=== PATIENT | female | born 1950 | race Caucasian/White ===

== ENCOUNTER → 2019-10-05 06:49 | Outpatient (CLI) | payer MEDICARE, MEDICAID, SELFPAY ==
--- NOTE | 2019-10-05 06:52 | CA_ITS ---
APPROVED REPORT Exam: Pharmacologic Technologist: Astrid Rangel, Ht: 5 ft 1 in Wt: 169 lbs BSA: 1.76 m2 HR: 80 bpm BP: 190/77 mmHg Rhythm: SINUS RHYTHM Medical History Medical History: HTN, Hyperlipidemia Medications: Omeprazole,,,,, Asa,,,,, Diazepam,,,,, Atorvastatin,,,,, Albuterol,,,,, Vit D3,,,,, BisOPROLOL,,,,, Ezetimbe,,,,, Mirtazapine,,,,, PhenXTOIN,,,,, Allergies: No known drug allergies Cardiac Risk Factors: HTN, Hyperlipidemia, FHX of CAD Stress Test Details Test: LEXISCAN HR Resting HR: 80 bpm Max Heart Rate (APMHR): 149 bpm Max HR Achieved: 101 bpm Target HR (85% APMHR): 126 bpm % of APMHR: 67 Recovery HR: 96 bpm BP Resting BP: 190.0/77.0 mmHg Max BP: 190.0/77.0 mmHg Recovery BP: 142.0/67.0 mmHg ECG Resting ECG: SINUS RHYTHM Clinical Exercise duration: 04:04 min Highest Stage Achieved: Stress ECG Conclusion LEXISCAN PORTION COMPLETED. NO SYMPTOMS DURING PEAK INFUSION. NO CP,SOA OR N/V. OCCASIONAL PVC. LESS THAN 1.5MM ST DEPRESSION. IMAGES TO FOLLOW Electronically signed by : Cesar Murillo, 10/06/2019 11:59:49
--- NOTE | 2019-10-05 06:52 | NM_ITS ---
APPROVED REPORT Exam: Nuclear Stress Test Indication: HTN, HYPERLIPIDEMIA, FORMER TOB USE, FM HX., C.P., SOB Patient Location: Outpatient Stress Tech: Stephanie Gonzalesnkson IN Tech:Tawanna Neely, ARRT, RT (R)(N) Ht: 5 ft 1 in Wt: 169 lbs Bra Size: 36C HR: 80 bpm BP: 190/77 mmHg BSA: 1.76 m2 BMI: 31.9 History: HTN, HYPERLIPIDEMIA, FORMER TOB USE, FM HX., C.P., SOB Procedure: Patient received a 0.4 mg of intravenous Lexiscan, resting heart rate 80 bpm, resting blood pressure 190/77 mmHg, with Lexiscan maximum heart rate achived was 99 bpm which is Less than 85 % of the maximum predicted heart rate and blood pressure was 163/67 mmHg. With Lexiscan, patient denied any complaint of chest pain. Electrocardiogram Resting electrocardiogram showed sinus rhythm, with Lexiscan there is less than 1.[address] segment depression noted from the baseline EKG. The EKG portion of the Lexiscan Myoview is nondiagnostic. Cardiac Stress and Resting SPECT Images: Cardiac Stress and Resting SPECT images were obtained using technetium 99m Myoview 31.6 mCi stress and 10.93 mCi at rest. Gated SPECT with analysis of segmental wall motion and calculation of the ejection fraction also done. Cardiac stress and resting SPECT images show a mild fixed defect in the anterior wall with normal contractility gated SPECT is likely secondary to soft tissue attenuation, no reversible ischemia seen, computer derived ejection fraction is over 65% with no regional wall motion abnormality, right ventricle is normal size and contractility. Conclusion: 1. The EKG portion of the Lexiscan Myoview is nondiagnostic. 2. No scintigraphic evidence of reversible ischemia seen, computer derived ejection fraction is over 65% with no regional wall motion abnormality, right ventricle is normal size and contractility. 3. Likely normal Lexiscan Myoview study. Electronically signed by : Cesar Murillo, 10/06/2019 12:02:15
--- NOTE | 2019-10-05 06:52 | CA_ITS ---
APPROVED REPORT EXAM: Comprehensive 2D, Doppler, and color-flow Echocardiogram Machine Stacker: Charito Vázquez CRT Ht: 5 ft 2 in Wt: 168lbs BSA: 1.78 BP: 140/74 mmHg Indications: Chest Pain, Shortness of Breath, GERD 2D Dimensions LVOT 1.79 cm (M/F) 1.5-2.5 M-Mode Dimensions RVDd 1.79 cm (0.9-2.6) LVDd 4.31 cm (3.5-5.7) LVDs 2.89 cm (3.5-5.7) IVSd 1.21 cm (0.6-1.1) PWd 0.98 cm (0.6-1.1) EF (Teich) 61.80% FS 32.90% EDV (Teich) 83.50 mL ESV (Teich) 31.90 mL LV Diastology E/A Ratio 1.74 Mitral Valve MV A Velocity 63.00 (40-130 cm/s) Left Ventricle Left atrium is mildly enlarged, left ventricle is normal size, left ventricle wall thickness is upper limit of the normal, there is preserved left ventricular systolic function, visually estimated ejection fraction 55% with no regional wall motion abnormality. Diastolic parameters are within normal range. Right Ventricle Right atrium and right ventricular mildly enlarged with normal contractility. Aortic Valve Aortic valve is minimally thickened and fibrosed, leaflet chordae display mobility, there is no aortic stenosis, there is mild to moderate aortic insufficiency. Mitral Valve Mitral valve leaflets are minimally thickened, there is no mitral stenosis, there is moderate mitral regurgitation. Tricuspid Valve Tricuspid valve is grossly normal, there is mild tricuspid regurgitation. Calculated right ventricular systolic pressure is 48 mmHg. Pulmonic Valve Pulmonic valve is poorly visualized. Great Vessels Aortic root is normal size. Pericardium No significant pericardial effusion noted. Conclusion 1. Mildly enlarged left atrium, normal left ventricular size, visually estimated ejection fraction of 55% with no regional wall motion abnormality, diastolic parameters are within normal range. 2. Thickened and calcified aortic valve without aortic stenosis, there is mild to moderate aortic insufficiency. 3. Moderate mitral and mild tricuspid regurgitation, calculated right ventricular systolic pressure is 48 mmHg. 4. No significant pericardial effusion noted. Electronically signed by : Cesar Murillo, 10/06/2019 14:25:25
--- NOTE | 2019-10-05 07:19 | HMH.ITSHM ---
Current Home Medications as stated by this patient Nevin Sandoval or fuels sales representative. []PHENXTOIN DIAZEPAM EZETIMIBE VITAMIN D3 OMEPRAZOLE BISOPROLOL ATORVASTATIN MIRTAZAPINE ASA ALBUTEROL
== END ==
PROVIDERS: PCP Family Medicine; Visit Provider Nurse Practitioner Family
DX: E78.2 Mixed hyperlipidemia (principal); I11.9 Hypertensive heart disease without heart failure; I20.9 Angina pectoris, unspecified; R06.00 Dyspnea, unspecified
CPT/HCPCS: 78452; 93017; 93306; A9502; J2785

== ENCOUNTER → 2020-09-10 07:22 | Outpatient (CLI) | payer MEDICARE, MEDICAID, SELFPAY ==
[2020-09-10 14:43] LABS: Basophils % 0.5 % (0.1-2.0); Eosinophils # 1.5 K/mm3 (0.0-0.4); Eosinophils % 17.4 % (0.1-12.0); Hematocrit 34.2 % (37.0-47.0); Hemoglobin 10.5 g/dL (12.2-16.2); Lymphocytes # 3.9 K/mm3 (0.7-4.5); Lymphocytes % 45.5 % (10-50); Mean Corpuscular HGB Conc 30.7 g/dL (31.8-35.4); Mean Corpuscular Hemoglobin 24.7 pg (27.0-31.2); Mean Corpuscular Volume 80.5 fl (81-99); Mean Platelet Volume 10.1 fl (7.4-10.4); Monocytes # 0.4 K/mm3 (0.1-1.0); Neutrophils # 2.7 K/mm3 (1.8-7.8); Neutrophils % 31.6 % (37.0-80.0); Platelet Count 264 K/mm3 (142-424); Red Blood Count 4.25 M/mm3 (4.20-5.40); Red Cell Distribution Width 16.1 % (11.5-17.5); White Blood Count 8.6 K/mm3 (4.8-10.8)
[2020-09-10 14:45] LABS: Chloride 107 mmol/L (98-107); Potassium 4.6 mmoL/L (3.5-5.1); Sodium 139 mmol/L (136-145)
[2020-09-10 14:47] LABS: Alanine Aminotransferase 15 U/L (12-78); Alkaline Phosphatase 121 U/L (38-126); Anion Gap 10.6 mEq/L (5-15); Aspartate Amino Transferase 27 U/L (14-36); Bilirubin,Total 0.3 mg/dl (0.2-1.3); Blood Urea Nitrogen 15 mg/dl (7-17); Carbon Dioxide 26 mmol/L (22.0-30.0); Estimated Glomerular Filt Rate 82 ml/min (>60); GFR (African American) 100 ML/MIN (>60)
[2020-09-10 14:48] LABS: Albumin Level 3.5 g/dl (3.5-5.0); Albumin/Globulin Ratio 1.1 (1.1-1.8); Calcium 8.8 mg/dl (8.4-10.2); Chol/HDL Ratio 2.4 (1-3.5); Cholesterol 143 mg/dl (140-200); Globulin 3.1 g/dL (1.3-3.2); Glucose 102 mg/dl (74-100); HDL Cholesterol 60 mg/dl (40-60); Total Protein,Serum 6.6 g/dl (6.3-8.2); Triglycerides 117 mg/dl (30-150); VLDL Cholesterol 23 mg/dL (0-40)
[2020-09-10 15:46] LABS: Phenytoin (Dilantin) 11.9 ug/ml (10-20)
== END ==
PROVIDERS: Visit Provider Nurse Practitioner Family
DX: G40.909 Epilepsy, unspecified, not intractable, without status epilepticus (principal); I27.20 Pulmonary hypertension, unspecified; E78.5 Hyperlipidemia, unspecified; Z51.81 Encounter for therapeutic drug level monitoring
CPT/HCPCS: 36415; 80053; 80061; 80185; 85025

== ENCOUNTER → 2020-12-18 12:05 | Outpatient (CLI) | payer MEDICARE, MEDICAID, SELFPAY ==
[2020-12-18 12:28] LABS: Basophils # 0.2 K/mm3 (0-0.2); Eosinophils # 1.3 K/mm3 (0.0-0.4); Eosinophils % 14.4 % (0.1-12.0); Hematocrit 34.1 % (37.0-47.0); Hemoglobin 10.3 g/dL (12.2-16.2); Mean Corpuscular HGB Conc 30.2 g/dL (31.8-35.4); Mean Corpuscular Hemoglobin 23.9 pg (27.0-31.2); Mean Corpuscular Volume 79.2 fl (81-99); Mean Platelet Volume 16.4 fl (7.4-10.4); Monocytes # 0.5 K/mm3 (0.1-1.0); Monocytes % 5.8 % (1.7-9.3); Neutrophils # 4.1 K/mm3 (1.8-7.8); Neutrophils % 44.9 % (37.0-80.0); Platelet Count 253 K/mm3 (142-424); Red Blood Count 4.31 M/mm3 (4.20-5.40); Red Cell Distribution Width 20.1 % (11.5-17.5); White Blood Count 9.1 K/mm3 (4.8-10.8)
[2020-12-18 13:30] LABS: Alanine Aminotransferase 18 U/L (12-78); Albumin Level 3.8 g/dl (3.5-5.0); Albumin/Globulin Ratio 1.2 (1.1-1.8); Alkaline Phosphatase 137 U/L (38-126); Anion Gap 13.8 mEq/L (5-15); Aspartate Amino Transferase 32 U/L (14-36); Bilirubin,Total 0.4 mg/dl (0.2-1.3); Blood Urea Nitrogen 15 mg/dl (7-17); Calcium 8.5 mg/dl (8.4-10.2); Carbon Dioxide 26 mmol/L (22.0-30.0); Chloride 104 mmol/L (98-107); Chol/HDL Ratio 2.1 (1-3.5); Cholesterol 144 mg/dl (140-200); Estimated Glomerular Filt Rate 71 ml/min (>60); GFR (African American) 85 ML/MIN (>60); Globulin 3.3 g/dL (1.3-3.2); Glucose 132 mg/dl (74-100); HDL Cholesterol 68 mg/dl (40-60); Phenytoin (Dilantin) 12.3 ug/ml (10-20); Potassium 4.8 mmoL/L (3.5-5.1); Sodium 139 mmol/L (136-145); Total Protein,Serum 7.1 g/dl (6.3-8.2); Triglycerides 83 mg/dl (30-150); VLDL Cholesterol 17 mg/dL (0-40)
[2020-12-18 13:38] LABS: Direct LDL Cholesterol 55.91 mg/dL (100-129)
[2020-12-18 20:48] LABS: Hemoglobin A1C 6.2 % (4.0-6.0)
== END ==
PROVIDERS: Visit Provider Nurse Practitioner Family
DX: I20.8 Other forms of angina pectoris (principal); I27.20 Pulmonary hypertension, unspecified; I11.9 Hypertensive heart disease without heart failure; Z79.899 Other long term (current) drug therapy; Z51.81 Encounter for therapeutic drug level monitoring
CPT/HCPCS: 36415; 80053; 80061; 80185; 83036; 85025

== ENCOUNTER → 2021-04-23 07:04 | Outpatient (CLI) | payer MEDICARE, MEDICAID, SELFPAY ==
[2021-04-23 14:34] LABS: Basophils # 0.1 K/mm3 (0-0.2); Basophils % 0.8 % (0.1-2.0); Eosinophils % 15.1 % (0.1-12.0); Hematocrit 29.1 % (37.0-47.0); Hemoglobin 8.9 g/dL (12.2-16.2); Lymphocytes # 2.7 K/mm3 (0.7-4.5); Lymphocytes % 40.8 % (10-50); Mean Corpuscular HGB Conc 30.7 g/dL (31.8-35.4); Mean Corpuscular Volume 74.8 fl (81-99); Mean Platelet Volume 9.6 fl (7.4-10.4); Monocytes # 0.4 K/mm3 (0.1-1.0); Monocytes % 6.2 % (1.7-9.3); Neutrophils # 2.5 K/mm3 (1.8-7.8); Neutrophils % 37.1 % (37.0-80.0); Platelet Count 261 K/mm3 (142-424); White Blood Count 6.7 K/mm3 (4.8-10.8)
[2021-04-23 14:47] LABS: Alanine Aminotransferase 13 U/L (12-78); Albumin Level 2.9 g/dl (3.5-5.0); Albumin/Globulin Ratio 0.9 (1.1-1.8); Alkaline Phosphatase 107 U/L (38-126); Anion Gap 6.3 mEq/L (5-15); Aspartate Amino Transferase 26 U/L (14-36); Bilirubin,Total < 0.1 mg/dl (0.2-1.3); Blood Urea Nitrogen 14 mg/dl (7-17); Calcium 7.9 mg/dl (8.4-10.2); Carbon Dioxide 26 mmol/L (22.0-30.0); Chloride 98 mmol/L (98-107); Chol/HDL Ratio 2.2 (1-3.5); Cholesterol 119 mg/dl (140-200); Estimated Glomerular Filt Rate 121 ml/min (>60); GFR (African American) 147 ML/MIN (>60); Globulin 3.1 g/dL (1.3-3.2); Glucose 99 mg/dl (74-100); HDL Cholesterol 53 mg/dl (40-60); Phenytoin (Dilantin) 14.7 ug/ml (10-20); Potassium 4.3 mmoL/L (3.5-5.1); Sodium 126 mmol/L (136-145); Triglycerides 95 mg/dl (30-150); VLDL Cholesterol 19 mg/dL (0-40)
[2021-04-23 14:55] LABS: Direct LDL Cholesterol 44.99 mg/dL (100-129)
== END ==
PROVIDERS: Visit Provider Nurse Practitioner Family
DX: I10 Essential (primary) hypertension (principal); E78.5 Hyperlipidemia, unspecified
CPT/HCPCS: 36415; 80053; 80061; 80185; 85025

== ENCOUNTER → 2021-04-29 07:11 | Outpatient (CLI) | payer MEDICARE, MEDICAID, SELFPAY ==
[2021-04-29 13:56] LABS: Anion Gap 8.5 mEq/L (5-15); Blood Urea Nitrogen 13 mg/dl (7-17); Calcium 8.6 mg/dl (8.4-10.2); Carbon Dioxide 28 mmol/L (22.0-30.0); Chloride 105 mmol/L (98-107); Estimated Glomerular Filt Rate 98 ml/min (>60); GFR (African American) 119 ML/MIN (>60); Glucose 111 mg/dl (74-100); Potassium 4.5 mmoL/L (3.5-5.1); Sodium 137 mmol/L (136-145)
[2021-04-29 14:00] LABS: Basophils # 0.1 K/mm3 (0-0.2); Basophils % 0.6 % (0.1-2.0); Eosinophils % 12.8 % (0.1-12.0); Hematocrit 31.5 % (37.0-47.0); Hemoglobin 9.3 g/dL (12.2-16.2); Lymphocytes % 37.1 % (10-50); Mean Corpuscular HGB Conc 29.6 g/dL (31.8-35.4); Mean Corpuscular Hemoglobin 22.6 pg (27.0-31.2); Mean Corpuscular Volume 76.4 fl (81-99); Monocytes # 0.3 K/mm3 (0.1-1.0); Monocytes % 4.2 % (1.7-9.3); Neutrophils # 3.6 K/mm3 (1.8-7.8); Neutrophils % 45.3 % (37.0-80.0); Platelet Count 291 K/mm3 (142-424); Red Blood Count 4.13 M/mm3 (4.20-5.40)
[2021-04-29 14:45] LABS: Vitamin B12 406 pg/mL (239-931)
[2021-04-29 15:16] LABS: Total Iron Binding Capacity 373 ug/dL (265-497)
[2021-04-29 15:20] LABS: Iron 25 ug/dL (37-170)
== END ==
PROVIDERS: Visit Provider Nurse Practitioner Family
DX: D50.9 Iron deficiency anemia, unspecified (principal); R06.00 Dyspnea, unspecified; I10 Essential (primary) hypertension; R94.31 Abnormal electrocardiogram [ECG] [EKG]
CPT/HCPCS: 36415; 80048; 82607; 83540; 83550; 85025

== ENCOUNTER → 2021-06-17 21:00 | Outpatient (CLI) | payer MEDICARE, MEDICAID, SELFPAY ==
[2021-06-18 07:26] LABS: Microscopic, Urine URINE MICROSCOPIC (MICROSCOPIC)
[2021-06-18 14:15] LABS: Appearance,Urine CLEAR (Clear); Bilirubin,Urine Negative (Negative); Blood, Urine 1+ (Negative); Color,Urine YELLOW (Yellow); Glucose,Urine (UA) Negative (Negative); Ketones,Urine Negative (Negative); Leukocyte Esterase,Urine 1+ (Negative); Nitrate,Urine Negative (Negative); Protein,Urine Negative (Negative); Urobilinogen,Urine 0.2 EU/dl (0.2)
[2021-06-18 14:40] LABS: RBC,Urine Occasional #/hpf (0-3); Squamous Epithelial Cell,Urine Occasional #/hpf (0-5); WBC,Urine Occasional #/hpf (0-3)
== END ==
PROVIDERS: Visit Provider Nurse Practitioner Family
DX: N39.0 Urinary tract infection, site not specified (principal); B96.4 Proteus (mirabilis) (morganii) as the cause of diseases classified elsewhere
CPT/HCPCS: 81001; 87086; 87088; 87186